=== PATIENT | male | born 1975 | race Caucasian/White ===

== ENCOUNTER 2018-08-02 11:26 | Day surgery (SDC) | payer OTHER ==
[~2018-08-02] VITALS: Ht 175.3 cm; Wt 87.4 kg
--- NOTE | 2018-08-02 12:01 | NUR ---
08/02/18 1201 Marta Remy V PT RESTING IN BED, SIDE RAILS IN PLACE, CALL LIGHT WITHIN REACH, VSS. PT DENIES PAIN AND DISCOMFORT AT THIS TIME.
--- NOTE | 2018-08-02 15:24 | NUR ---
08/02/18 1524 Kimberly Grayson DC'Alessia AT 1520. PT ON ROOM AIR, SATS ARE 96%.
--- NOTE | 2018-08-02 15:34 | NUR ---
08/02/18 1534 Lory Coronado PT INTO RECLINER WITH AT BEDSIDE. VSS. PT DENIES PAIN MEDS AT THIS TIME.
== END 2018-08-02 16:51 | disposition home or self-care (01) ==
LOC: ORSCSDS 11:26
PROVIDERS: Surgery
PROC: 0YUA0JZ Supplement Bilateral Inguinal Region with Synthetic Substitute, Open Approach (ICD-10-PCS; principal; 2018-08-02 13:00)
DX: K40.20 Bilateral inguinal hernia, without obstruction or gangrene, not specified as recurrent (principal)
CPT/HCPCS: C1781; J0690; J1100; J1885; J2250; J2405; J2710; J2765; J3010; J7120

== ENCOUNTER 2023-05-12 18:17 | Emergency (ER) | payer OTHER ==
[~2023-05-12] VITALS: Ht 175.3 cm; Wt 81.7 kg
[2023-05-12 19:15] VITALS: BP 122/79
[2023-05-12] MEDS ORDERED: Robaxin750 MG PO (21:15)
[2023-05-12] MEDS ORDERED: ONDA4ODT MM (21:15)
[2023-05-12] MEDS ORDERED: OXYC5 PO (21:15)
== END 2023-05-12 21:35 | disposition home or self-care (01) ==
LOC: ER 18:17
DX: S82.142A Displaced bicondylar fracture of left tibia, initial encounter for closed fracture (principal); V86.55XA Driver of 3- or 4- wheeled all-terrain vehicle (ATV) injured in nontraffic accident, initial encounter
CPT/HCPCS: 29505; 73562-LT; 73706; 99284-25; A9270; Q9967